=== PATIENT | male | born 1975 | race Caucasian/White ===

== ENCOUNTER 2017-06-25 13:54 | Inpatient (IN) | payer MEDICAID ==
[~2017-06-25] VITALS: Ht 180.3 cm; Wt 78.0 kg
[~2017-06-25 13:54] MED LIST: BENZ1TAB70 PO; DIVA500T52 PO; HALO10TA15 PO; OLAN10TA6 PO; OLAN20TA5 PO; PROP40TA7 PO; TRAZ-147 PO
[2017-06-25 16:36] VITALS: BP 116/79
[2017-06-25 17:43] VITALS: BP 108/71
[2017-06-25] MEDS: ZOLPIDEM TARTRATE 10 MG TABLET PO PRN (20:37)
[2017-06-26 01:10] VITALS: BP 117/75
[2017-06-26] MEDS: LORazepam 2 MG TABLET PO PRN ×4 (01:15→20:45)
[2017-06-26] MEDS: HALOPERIDOL 5 MG TABLET PO PRN ×3 (01:15→16:43)
[2017-06-26 08:00] VITALS: BP 112/65
[2017-06-26] MEDS ORDERED: MAG HYDROX/AL HYDROX/SIMETH ES 30 ML SUSPENSION UDCUP PO PRN (11:30)
[2017-06-26] MEDS ORDERED: CloNIDine HCL 0.1 MG TABLET PO PRN (11:30)
[2017-06-26] MEDS ORDERED: PETROLATUM,WHITE 71 GM JELLY TP PRN (11:30)
[2017-06-26] MEDS ORDERED: BACITRACIN 28.4 GM OINTMENT TP PRN (11:30)
[2017-06-26] MEDS ORDERED: LOPERAMIDE HCL 2 MG CAPSULE PO PRN (11:30)
[2017-06-26] MEDS ORDERED: ALBUTEROL SULFATE HFA 90 MCG/PUFF 8 GM INHALER IH PRN (11:30)
[2017-06-26] MEDS ORDERED: MAGNESIUM HYDROXIDE SUSPENSION 30 ML UDCUP PO PRN (11:30)
[2017-06-26] MEDS ORDERED: ACETAMINOPHEN 325 MG TABLET PO PRN (11:30)
[2017-06-26] MEDS ORDERED: BENZOCAINE/MENTHOL LOZENGE MM PRN (11:30)
[2017-06-26] MEDS ORDERED: ONDANSETRON HCL 4 MG TABLET PO PRN (11:30)
[2017-06-26] MEDS ORDERED: IBUPROFEN 600 MG TABLET PO PRN (11:30)
[2017-06-26] MEDS: DOCUSATE SODIUM 100 MG CAPSULE PO SCH (11:50)
[2017-06-26 16:00] VITALS: BP 110/72
[2017-06-26] MEDS: RisperiDONE 1 MG TABLET PO SCH (20:44)
[2017-06-26] MEDS: ZOLPIDEM TARTRATE 10 MG TABLET PO PRN (20:44)
[2017-06-27 05:15] VITALS: BP 112/63
[2017-06-27 07:38] LABS: BASOPHILS # (AUTO) 0.02 K/uL (0.00-0.20); BASOPHILS % (AUTO) 0.3 % (0.0-2.0); EOSINOPHILS % (AUTO) 2.83 % (1.0-6.0); HEMATOCRIT 39.8 % (41-53); HEMOGLOBIN 13.1 g/dL (13.5-17.5); MEAN CORPUSCULAR HEMOGLOBIN 30.1 pg (26.0-34.0); MEAN CORPUSCULAR HGB CONC 32.9 G/dL (31.0-37.0); MEAN CORPUSCULAR VOLUME 92 fL (80-100); MONOCYTES # (AUTO) 0.5 K/uL (0.1-1.0); MONOCYTES % (AUTO) 7.5 % (2.0-9.0); NEUTROPHILS # (AUTO) 4.3 K/uL (1.8-7.7); NEUTROPHILS % (AUTO) 61.3 % (40.0-70.0); PLATELET COUNT (AUTO) 173 K/uL (150-450); RED BLOOD CELL COUNT(AUTO) 4.35 MIL/uL (4.50-5.90); RED CELL DISTRIBUTION WIDTH 13.6 % (11.5-14.5)
[2017-06-27 08:15] VITALS: BP 110/76
[2017-06-27] MEDS: HALOPERIDOL 5 MG TABLET PO PRN ×3 (08:39→16:44)
[2017-06-27] MEDS: LORazepam 2 MG TABLET PO PRN ×3 (08:39→16:44)
[2017-06-27] MEDS: OMEPRAZOLE 20 MG CAPSULE PO SCH (08:39)
[2017-06-27] MEDS: DOCUSATE SODIUM 100 MG CAPSULE PO SCH (08:39)
[2017-06-27 08:46] LABS: ALANINE AMINOTRANSFERASE 23 U/L (12-78); ALBUMIN 3.4 g/dL (3.4-5.0); ANION GAP 7 mmol/L (8-16); ASPARTATE AMINOTRANSFERASE 19 U/L (15-37); BILIRUBIN,TOTAL 0.3 mg/dL (0.1-1.0); CALCIUM, TOTAL 8.7 mg/dL (8.8-10.5); CARBON DIOXIDE 28 mmol/L (22-29); CHLORIDE 106 mmol/L (98-107); CREATININE 0.71 mg/dL (0.60-1.30); GLOMERULAR FILTR. RATE CALC > 60 mL/min (>60); POTASSIUM 4.1 mmol/L (3.5-5.1); SODIUM SERUM 141 mmol/L (136-145); TOTAL PROTEIN, SERUM 6.8 g/dL (6.4-8.2); UREA NITROGEN, BLOOD 8 mg/dL (7-18)
[2017-06-27 16:00] VITALS: BP 115/74
[2017-06-27] MEDS: RisperiDONE 1 MG TABLET PO SCH (20:47)
[2017-06-28 06:21] VITALS: BP 122/78
[2017-06-28 08:41] VITALS: BP 108/67
[2017-06-28] MEDS: DOCUSATE SODIUM 100 MG CAPSULE PO SCH (08:46)
[2017-06-28] MEDS: OMEPRAZOLE 20 MG CAPSULE PO SCH (08:46)
[2017-06-28 16:00] VITALS: BP 121/73
[2017-06-28] MEDS ORDERED: PROMETHAZINE HCL 25 MG/ML VIAL IM ONE (18:30)
[2017-06-28] MEDS: RisperiDONE 1 MG TABLET PO SCH (20:51)
[2017-06-28] MEDS: ZOLPIDEM TARTRATE 10 MG TABLET PO PRN (20:51)
[2017-06-28] MEDS: LORazepam 2 MG TABLET PO PRN (20:51)
[2017-06-28] MEDS: HALOPERIDOL 5 MG TABLET PO PRN (20:51)
[2017-06-29] MEDS: HALOPERIDOL 5 MG TABLET PO PRN ×2 (01:42→16:34)
[2017-06-29] MEDS: LORazepam 2 MG TABLET PO PRN ×4 (01:42→20:38)
[2017-06-29 01:52] VITALS: BP 140/90
[2017-06-29 08:03] VITALS: BP 110/70
[2017-06-29] MEDS: OMEPRAZOLE 20 MG CAPSULE PO SCH (08:46)
[2017-06-29] MEDS: DOCUSATE SODIUM 100 MG CAPSULE PO SCH (08:46)
[2017-06-29 09:02] LABS: APPEARANCE,URINE TURBID (CLEAR); GLUCOSE, URINE (UA) NEGATIVE (NEGATIVE); KETONES,URINE NEGATIVE (NEGATIVE); LEUKOCYTE ESTERASE ,URINE NEGATIVE (NEGATIVE); OCCULT BLOOD,URINE NEGATIVE (NEGATIVE); PH,URINE 5.5 (5.0-8.0); PROTEIN,URINE NEGATIVE (NEGATIVE)
[2017-06-29 09:39] LABS: ADD UA MICROSCOPIC YES
[2017-06-29 09:40] LABS: AMORPHOUS SEDIMENT,UR Many /LPF (None Seen); RBC,URINE None Seen /HPF (0-2); WBC,URINE None Seen /HPF (0-5)
[2017-06-29 16:00] VITALS: BP 117/72
[2017-06-29] MEDS: ZOLPIDEM TARTRATE 10 MG TABLET PO PRN (20:38)
[2017-06-29] MEDS: RisperiDONE 1 MG TABLET PO SCH (20:38)
[2017-06-30 05:58] VITALS: BP 113/76
[2017-06-30 08:30] VITALS: BP 123/78
[2017-06-30] MEDS ORDERED: MULTIVITAMINS WITH IRON TABLET PO SCH (09:00)
[2017-06-30] MEDS: OMEPRAZOLE 20 MG CAPSULE PO SCH (09:42)
[2017-06-30] MEDS: DOCUSATE SODIUM 100 MG CAPSULE PO SCH (09:42)
[2017-06-30] MEDS ORDERED: OMEP20 PO (11:31)
[2017-06-30] MEDS ORDERED: DSS100 PO (11:31)
[2017-06-30] MEDS ORDERED: RISP1 PO (11:31)
== END 2017-06-30 14:05 | disposition home or self-care (01) | DRG 750 ==
LOC: B3A 16:33
PROVIDERS: ADMIT Psychiatry & Neurology Child & Adolescent Psychiatry; ATTEND Psychiatry & Neurology Child & Adolescent Psychiatry
DX: F20.0 Paranoid schizophrenia (principal); F14.10 Cocaine abuse, uncomplicated; F12.10 Cannabis abuse, uncomplicated; F17.200 Nicotine dependence, unspecified, uncomplicated; G47.00 Insomnia, unspecified; F41.9 Anxiety disorder, unspecified; K59.00 Constipation, unspecified; D64.9 Anemia, unspecified; Z81.8 Family history of other mental and behavioral disorders; Z91.83 Wandering in diseases classified elsewhere; Z79.899 Other long term (current) drug therapy
CPT/HCPCS: 80307; 87081; J2550; Q0162

== ENCOUNTER 2017-07-01 07:32 | Inpatient (IN) | payer MEDICAID ==
[~2017-07-01] VITALS: Ht 177.8 cm; Wt 80.5 kg
[~2017-07-01 07:32] MED LIST changes: -BENZ1TAB70 PO; -DIVA500T52 PO; +DSS100 PO; -HALO10TA15 PO; -OLAN10TA6 PO; -OLAN20TA5 PO; +OMEP20 PO; -PROP40TA7 PO; +RISP1 PO; -TRAZ-147 PO
[2017-07-01 08:21] LABS: BASOPHILS % (AUTO) 0.2 % (0.0-2.0); EOSINOPHILS % (AUTO) 0.5 % (1.0-6.0); HEMOGLOBIN 14.2 g/dL (13.5-17.5); LYMPHOCYTES # (AUTO) 1.4 K/uL (1.0-4.8); LYMPHOCYTES % (AUTO) 14.4 % (22.0-44.0); MEAN CORPUSCULAR HEMOGLOBIN 30.7 pg (26.0-34.0); MEAN CORPUSCULAR HGB CONC 34.6 G/dL (31.0-37.0); MEAN CORPUSCULAR VOLUME 89 fL (80-100); MONOCYTES # (AUTO) 0.7 K/uL (0.1-1.0); MONOCYTES % (AUTO) 7.1 % (2.0-9.0); NEUTROPHILS # (AUTO) 7.5 K/uL (1.8-7.7); NEUTROPHILS % (AUTO) 77.8 % (40.0-70.0); PLATELET COUNT (AUTO) 222 K/uL (150-450); RED BLOOD CELL COUNT(AUTO) 4.61 MIL/uL (4.50-5.90)
[2017-07-01 08:31] LABS: AMPHET/METH SCREEN,URINE NEGATIVE (NEGATIVE); BARBITURATE SCREEN, URINE NEGATIVE (NEGATIVE); BENZODIAZEPINES SCREEN,URINE NEGATIVE (NEGATIVE); CANNABINOID SCREEN,URINE NEGATIVE (NEGATIVE); COCAINE SCREEN,URINE NEGATIVE (NEGATIVE); METHADONE SCREEN, URINE NEGATIVE (NEGATIVE); OPIATE SCREEN,URINE NEGATIVE (NEGATIVE)
[2017-07-01 08:32] LABS: ANION GAP 7 mmol/L (8-16); CALCIUM, TOTAL 9.1 mg/dL (8.8-10.5); CARBON DIOXIDE 29 mmol/L (22-29); CHLORIDE 102 mmol/L (98-107); CREATININE 0.69 mg/dL (0.60-1.30); GLOMERULAR FILTR. RATE CALC > 60 mL/min (>60); GLUCOSE,RANDOM 121 mg/dL (70-110); POTASSIUM 3.8 mmol/L (3.5-5.1); SODIUM SERUM 138 mmol/L (136-145); UREA NITROGEN, BLOOD 16 mg/dL (7-18)
[2017-07-01 08:33] LABS: PHENCYCLIDINE SCREEN,URINE NEGATIVE (NEGATIVE)
[2017-07-01 08:38] LABS: ALANINE AMINOTRANSFERASE 29 U/L (12-78); ALBUMIN 3.9 g/dL (3.4-5.0); ALKALINE PHOSPHATASE 83 U/L (46-116); ASPARTATE AMINOTRANSFERASE 38 U/L (15-37); BILIRUBIN,TOTAL 0.2 mg/dL (0.1-1.0); TOTAL PROTEIN, SERUM 7.9 g/dL (6.4-8.2)
[2017-07-01] MEDS: LORazepam 2 MG TABLET PO PRN ×2 (09:02→17:13)
[2017-07-01] MEDS: HALOPERIDOL 5 MG TABLET PO PRN ×2 (09:02→17:13)
[2017-07-01] MEDS ORDERED: DiphenhydrAMINE HCL 50 MG/ML VIAL ONE (10:25)
[2017-07-01] MEDS ORDERED: LORazepam 2 MG/ML VIAL ONE (10:25)
[2017-07-01] MEDS ORDERED: HALOPERIDOL LACTATE 5 MG/ML VIAL ONE (10:26)
[2017-07-01] MEDS ORDERED: DiphenhydrAMINE HCL 50 MG/ML VIAL IM ONE (10:30)
[2017-07-01] MEDS ORDERED: LORazepam 2 MG/ML VIAL IM ONE (10:30)
[2017-07-01] MEDS ORDERED: HALOPERIDOL LACTATE 5 MG/ML VIAL IM ONE (10:30)
[2017-07-01 17:20] VITALS: BP 113/85
[2017-07-01] MEDS ORDERED: INFLUENZA VIRUS VACCINE QVS 2017-18 (3YR+)/PF 60 MCG/0.5 ML SYRINGE IM ONE (17:45)
[2017-07-02] MEDS: LORazepam 2 MG TABLET PO PRN ×2 (06:50→15:56)
[2017-07-02] MEDS: HALOPERIDOL 5 MG TABLET PO PRN ×2 (06:50→15:56)
[2017-07-02] MEDS ORDERED: LORazepam 2 MG/ML VIAL IM ONE (07:00)
[2017-07-02] MEDS ORDERED: DiphenhydrAMINE HCL 50 MG/ML VIAL IM ONE (07:00)
[2017-07-02] MEDS ORDERED: DiphenhydrAMINE HCL 50 MG/ML VIAL ONE (07:02)
[2017-07-02] MEDS ORDERED: LORazepam 2 MG/ML VIAL ONE (07:02)
[2017-07-02 07:05] VITALS: BP 109/66
[2017-07-02] MEDS: OMEPRAZOLE 20 MG CAPSULE PO SCH (08:00)
[2017-07-02] MEDS: DOCUSATE SODIUM 100 MG CAPSULE PO SCH (08:00)
[2017-07-02 08:05] VITALS: BP 109/66
[2017-07-02 16:00] VITALS: BP 119/77
[2017-07-02] MEDS: RisperiDONE 1 MG TABLET PO SCH (20:17)
[2017-07-02] MEDS ORDERED: RisperiDONE 1 MG TABLET PO SCH (21:00)
[2017-07-03 06:43] VITALS: BP 102/63
[2017-07-03 08:18] VITALS: BP 104/65
[2017-07-03] MEDS: OMEPRAZOLE 20 MG CAPSULE PO SCH (08:35)
[2017-07-03] MEDS: RisperiDONE 1 MG TABLET PO SCH ×2 (08:35→20:27)
[2017-07-03] MEDS: DOCUSATE SODIUM 100 MG CAPSULE PO SCH (08:35)
[2017-07-03] MEDS: HALOPERIDOL 5 MG TABLET PO PRN ×3 (08:35→17:12)
[2017-07-03] MEDS: LORazepam 2 MG TABLET PO PRN ×3 (08:35→17:12)
[2017-07-03 16:00] VITALS: BP 111/77
[2017-07-04 02:52] VITALS: BP 118/64
[2017-07-04] MEDS: RisperiDONE 1 MG TABLET PO SCH ×2 (08:12→20:14)
[2017-07-04] MEDS: LORazepam 2 MG TABLET PO PRN ×2 (08:12→15:56)
[2017-07-04] MEDS: OMEPRAZOLE 20 MG CAPSULE PO SCH (08:12)
[2017-07-04] MEDS: HALOPERIDOL 5 MG TABLET PO PRN ×2 (08:12→15:56)
[2017-07-04] MEDS: DOCUSATE SODIUM 100 MG CAPSULE PO SCH (08:12)
[2017-07-04 08:33] VITALS: BP 114/69
[2017-07-04 09:30] VITALS: BP 104/63
[2017-07-04] MEDS ORDERED: HALOPERIDOL LACTATE 5 MG/ML VIAL IM ONE (09:30)
[2017-07-04] MEDS ORDERED: LORazepam 2 MG/ML VIAL IM ONE (09:30)
[2017-07-04] MEDS ORDERED: DiphenhydrAMINE HCL 50 MG/ML VIAL IM ONE (09:30)
[2017-07-04 10:00] VITALS: BP 102/64
[2017-07-04 16:09] VITALS: BP 111/65
[2017-07-04] MEDS: DIVALPROEX SODIUM 500 MG DR TABLET PO SCH (18:52)
[2017-07-04] MEDS: LITHIUM CARBONATE 300 MG CAPSULE PO SCH (18:52)
[2017-07-04] MEDS: ZOLPIDEM TARTRATE 10 MG TABLET PO PRN (20:14)
[2017-07-05 00:36] VITALS: BP 116/81
[2017-07-05] MEDS ORDERED: LORazepam 2 MG/ML VIAL IM ONE (08:15)
[2017-07-05] MEDS ORDERED: DiphenhydrAMINE HCL 50 MG/ML VIAL IM ONE (08:15)
[2017-07-05] MEDS ORDERED: HALOPERIDOL LACTATE 5 MG/ML VIAL IM ONE (08:15)
[2017-07-05] MEDS ORDERED: LITHIUM CARBONATE 300 MG CAPSULE PO SCH (09:00)
[2017-07-05] MEDS ORDERED: DIVALPROEX SODIUM 500 MG DR TABLET PO SCH (09:00)
[2017-07-05] MEDS: OMEPRAZOLE 20 MG CAPSULE PO SCH (10:13)
[2017-07-05] MEDS: DIVALPROEX SODIUM 500 MG DR TABLET PO SCH ×2 (10:13→16:25)
[2017-07-05] MEDS: LITHIUM CARBONATE 300 MG CAPSULE PO SCH ×2 (10:13→16:25)
[2017-07-05] MEDS: DOCUSATE SODIUM 100 MG CAPSULE PO SCH (10:13)
[2017-07-05] MEDS: RisperiDONE 1 MG TABLET PO SCH ×2 (10:13→20:06)
[2017-07-05 10:39] VITALS: BP 103/62
[2017-07-05] MEDS: HALOPERIDOL 5 MG TABLET PO PRN ×2 (12:54→20:06)
[2017-07-05] MEDS: LORazepam 2 MG TABLET PO PRN ×2 (12:54→16:25)
[2017-07-05] MEDS ORDERED: LITH300C3 PO (13:10)
[2017-07-05] MEDS ORDERED: DIVA500T35 PO (13:10)
[2017-07-05 16:43] VITALS: BP 122/74
[2017-07-05] MEDS: ZOLPIDEM TARTRATE 10 MG TABLET PO PRN (20:06)
[2017-07-06 06:15] VITALS: BP 101/83
[2017-07-06 08:00] VITALS: BP 110/72
[2017-07-06] MEDS: OMEPRAZOLE 20 MG CAPSULE PO SCH (08:19)
[2017-07-06] MEDS: LITHIUM CARBONATE 300 MG CAPSULE PO SCH ×2 (08:19→16:35)
[2017-07-06] MEDS: DOCUSATE SODIUM 100 MG CAPSULE PO SCH (08:20)
[2017-07-06] MEDS: RisperiDONE 1 MG TABLET PO SCH ×2 (08:20→20:21)
[2017-07-06] MEDS: DIVALPROEX SODIUM 500 MG DR TABLET PO SCH ×2 (08:20→16:35)
[2017-07-06] MEDS: LORazepam 2 MG TABLET PO PRN ×2 (12:00→16:35)
[2017-07-06] MEDS: HALOPERIDOL 5 MG TABLET PO PRN ×2 (12:00→16:35)
[2017-07-06 16:34] VITALS: BP 131/76
[2017-07-06] MEDS: ZOLPIDEM TARTRATE 10 MG TABLET PO PRN (20:20)
[2017-07-07 05:50] VITALS: BP 127/80
[2017-07-07] MEDS: RisperiDONE 1 MG TABLET PO SCH (07:55)
[2017-07-07] MEDS: LITHIUM CARBONATE 300 MG CAPSULE PO SCH ×2 (07:55→16:47)
[2017-07-07] MEDS: DOCUSATE SODIUM 100 MG CAPSULE PO SCH (07:55)
[2017-07-07] MEDS: OMEPRAZOLE 20 MG CAPSULE PO SCH (07:55)
[2017-07-07] MEDS: DIVALPROEX SODIUM 500 MG DR TABLET PO SCH ×2 (07:55→16:47)
[2017-07-07 08:38] VITALS: BP 107/86
[2017-07-07] MEDS ORDERED: LORazepam 2 MG/ML VIAL ONE (16:02)
[2017-07-07] MEDS ORDERED: DiphenhydrAMINE HCL 50 MG/ML VIAL ONE (16:02)
[2017-07-07] MEDS ORDERED: HALOPERIDOL LACTATE 5 MG/ML VIAL IM ONE (16:15)
[2017-07-07] MEDS ORDERED: DiphenhydrAMINE HCL 50 MG/ML VIAL IM ONE (16:15)
[2017-07-07] MEDS ORDERED: LORazepam 2 MG/ML VIAL IM ONE (16:15)
[2017-07-07] MEDS: RisperiDONE 2 MG TABLET PO SCH (20:37)
[2017-07-08 08:04] VITALS: BP 111/64
[2017-07-08] MEDS: LORazepam 2 MG TABLET PO PRN ×3 (08:30→21:04)
[2017-07-08] MEDS: OMEPRAZOLE 20 MG CAPSULE PO SCH (08:30)
[2017-07-08] MEDS: DIVALPROEX SODIUM 500 MG DR TABLET PO SCH ×2 (08:30→17:00)
[2017-07-08] MEDS: DOCUSATE SODIUM 100 MG CAPSULE PO SCH (08:30)
[2017-07-08] MEDS: LITHIUM CARBONATE 300 MG CAPSULE PO SCH ×2 (08:30→17:00)
[2017-07-08] MEDS: RisperiDONE 2 MG TABLET PO SCH (08:30)
[2017-07-08] MEDS: HALOPERIDOL 5 MG TABLET PO PRN ×2 (08:30→17:00)
[2017-07-08] MEDS ORDERED: LORazepam 2 MG/ML VIAL ONE (11:20)
[2017-07-08] MEDS ORDERED: DiphenhydrAMINE HCL 50 MG/ML VIAL ONE (11:21)
[2017-07-08] MEDS ORDERED: HALOPERIDOL LACTATE 5 MG/ML VIAL ONE (11:21)
[2017-07-08] MEDS ORDERED: LORazepam 2 MG/ML VIAL IM ONE (11:30)
[2017-07-08] MEDS ORDERED: HALOPERIDOL LACTATE 5 MG/ML VIAL IM ONE (11:30)
[2017-07-08] MEDS ORDERED: DiphenhydrAMINE HCL 50 MG/ML VIAL IM ONE (11:30)
[2017-07-08 16:04] VITALS: BP 122/73
[2017-07-08] MEDS: ZOLPIDEM TARTRATE 10 MG TABLET PO PRN (21:04)
[2017-07-08] MEDS: RisperiDONE 3 MG TABLET PO SCH (21:04)
[2017-07-09 08:33] VITALS: BP 106/69
[2017-07-09] MEDS: LORazepam 2 MG TABLET PO PRN ×2 (08:47→14:33)
[2017-07-09] MEDS: RisperiDONE 3 MG TABLET PO SCH ×2 (08:47→20:29)
[2017-07-09] MEDS: HALOPERIDOL 5 MG TABLET PO PRN ×2 (08:47→14:33)
[2017-07-09] MEDS: OMEPRAZOLE 20 MG CAPSULE PO SCH (08:47)
[2017-07-09] MEDS: LITHIUM CARBONATE 300 MG CAPSULE PO SCH ×2 (08:47→16:19)
[2017-07-09] MEDS ORDERED: MAGNESIUM HYDROXIDE SUSPENSION 30 ML UDCUP PO PRN (09:00)
[2017-07-09] MEDS ORDERED: MAG HYDROX/AL HYDROX/SIMETH ES 30 ML SUSPENSION UDCUP PO PRN (09:00)
[2017-07-09] MEDS ORDERED: BENZOCAINE/MENTHOL LOZENGE MM PRN (09:00)
[2017-07-09] MEDS ORDERED: BACITRACIN 28.4 GM OINTMENT TP PRN (09:00)
[2017-07-09] MEDS ORDERED: LOPERAMIDE HCL 2 MG CAPSULE PO PRN (09:00)
[2017-07-09] MEDS ORDERED: DOCUSATE SODIUM 100 MG CAPSULE PO SCH (09:00)
[2017-07-09] MEDS ORDERED: CloNIDine HCL 0.1 MG TABLET PO PRN (09:00)
[2017-07-09] MEDS ORDERED: ACETAMINOPHEN 325 MG TABLET PO PRN (09:00)
[2017-07-09] MEDS ORDERED: PETROLATUM,WHITE 71 GM JELLY TP PRN (09:00)
[2017-07-09] MEDS ORDERED: ONDANSETRON HCL 4 MG TABLET PO PRN (09:00)
[2017-07-09] MEDS ORDERED: ALBUTEROL SULFATE HFA 90 MCG/PUFF 8 GM INHALER IH PRN (09:00)
[2017-07-09] MEDS ORDERED: OMEPRAZOLE 20 MG CAPSULE PO SCH (09:00)
[2017-07-09] MEDS: DOCUSATE SODIUM 100 MG CAPSULE PO SCH (09:34)
[2017-07-09] MEDS: DIVALPROEX SODIUM 500 MG DR TABLET PO SCH ×2 (09:34→16:19)
[2017-07-09] MEDS: IBUPROFEN 600 MG TABLET PO PRN (09:35)
[2017-07-09 11:14] LABS: LITHIUM 0.33 mmol/L (0.60-1.20)
[2017-07-09 16:11] VITALS: BP 128/76
[2017-07-09] MEDS ORDERED: DiphenhydrAMINE HCL 50 MG/ML VIAL ONE (17:42)
[2017-07-09] MEDS ORDERED: LORazepam 2 MG/ML VIAL ONE (17:42)
[2017-07-09] MEDS ORDERED: HALOPERIDOL LACTATE 5 MG/ML VIAL ONE (17:43)
[2017-07-09] MEDS ORDERED: LORazepam 2 MG/ML VIAL IM ONE (17:45)
[2017-07-09] MEDS ORDERED: HALOPERIDOL LACTATE 5 MG/ML VIAL IM ONE (17:45)
[2017-07-09] MEDS ORDERED: DiphenhydrAMINE HCL 50 MG/ML VIAL IM ONE (17:45)
[2017-07-09] MEDS: BENZOCAINE 20% 11.9 GM GEL TP SCH (21:15)
[2017-07-10] MEDS: BENZOCAINE 20% 11.9 GM GEL TP SCH ×4 (03:15→20:37)
[2017-07-10] MEDS ORDERED: DiphenhydrAMINE HCL 50 MG/ML VIAL IM ONE (07:55)
[2017-07-10] MEDS ORDERED: LORazepam 2 MG/ML VIAL IM ONE (07:55)
[2017-07-10] MEDS ORDERED: HALOPERIDOL LACTATE 5 MG/ML VIAL IM ONE (07:55)
[2017-07-10 08:24] VITALS: BP 93/54
[2017-07-10] MEDS: DIVALPROEX SODIUM 500 MG DR TABLET PO SCH ×2 (08:35→17:00)
[2017-07-10] MEDS: OMEPRAZOLE 20 MG CAPSULE PO SCH (08:36)
[2017-07-10] MEDS: LITHIUM CARBONATE 300 MG CAPSULE PO SCH ×2 (08:36→17:00)
[2017-07-10] MEDS: RisperiDONE 3 MG TABLET PO SCH ×2 (08:36→20:36)
[2017-07-10] MEDS: DOCUSATE SODIUM 100 MG CAPSULE PO SCH (08:36)
[2017-07-10] MEDS: MAGNESIUM SULFATE 454 GM BOX PO SCH ×3 (08:36→17:01)
[2017-07-10] MEDS: LORazepam 2 MG TABLET PO PRN ×2 (10:29→19:21)
[2017-07-10] MEDS: HALOPERIDOL 5 MG TABLET PO PRN ×2 (10:29→19:21)
[2017-07-10] MEDS ORDERED: LORazepam 2 MG/ML VIAL ONE (10:59)
[2017-07-10] MEDS ORDERED: DiphenhydrAMINE HCL 50 MG/ML VIAL ONE (10:59)
[2017-07-10] MEDS ORDERED: HALOPERIDOL LACTATE 5 MG/ML VIAL ONE (11:00)
[2017-07-10 16:29] VITALS: BP 146/55
[2017-07-10] MEDS: ZOLPIDEM TARTRATE 10 MG TABLET PO PRN (23:56)
[2017-07-11] MEDS: BENZOCAINE 20% 11.9 GM GEL TP SCH ×4 (03:15→21:15)
[2017-07-11 06:14] VITALS: BP 102/61
[2017-07-11 08:04] VITALS: BP 112/74
[2017-07-11] MEDS ORDERED: DiphenhydrAMINE HCL 50 MG/ML VIAL ONE (08:51)
[2017-07-11] MEDS ORDERED: HALOPERIDOL LACTATE 5 MG/ML VIAL ONE (08:51)
[2017-07-11] MEDS ORDERED: LORazepam 2 MG/ML VIAL ONE (08:51)
[2017-07-11] MEDS ORDERED: DiphenhydrAMINE HCL 50 MG/ML VIAL IM ONE ×2 (09:15→15:30)
[2017-07-11] MEDS ORDERED: HALOPERIDOL LACTATE 5 MG/ML VIAL IM ONE ×2 (09:15→15:30)
[2017-07-11] MEDS ORDERED: LORazepam 2 MG/ML VIAL IM ONE ×2 (09:15→15:30)
[2017-07-11] MEDS: DOCUSATE SODIUM 100 MG CAPSULE PO SCH (09:22)
[2017-07-11] MEDS: DIVALPROEX SODIUM 500 MG DR TABLET PO SCH ×2 (09:22→17:39)
[2017-07-11] MEDS: OMEPRAZOLE 20 MG CAPSULE PO SCH (09:22)
[2017-07-11] MEDS: RisperiDONE 3 MG TABLET PO SCH ×2 (09:22→21:00)
[2017-07-11] MEDS: LITHIUM CARBONATE 300 MG CAPSULE PO SCH ×2 (09:22→17:39)
[2017-07-11] MEDS: MAGNESIUM SULFATE 454 GM BOX PO SCH ×3 (09:23→17:39)
[2017-07-11 16:01] VITALS: BP 140/86
[2017-07-11] MEDS: LORazepam 2 MG TABLET PO PRN (17:39)
[2017-07-11] MEDS: HALOPERIDOL 5 MG TABLET PO PRN (17:39)
[2017-07-11] MEDS: ZOLPIDEM TARTRATE 10 MG TABLET PO PRN (21:00)
[2017-07-12 01:30] VITALS: BP 124/78
[2017-07-12] MEDS: BENZOCAINE 20% 11.9 GM GEL TP SCH ×3 (03:15→16:06)
[2017-07-12] MEDS: RisperiDONE 3 MG TABLET PO SCH ×2 (08:31→20:31)
[2017-07-12] MEDS: LITHIUM CARBONATE 300 MG CAPSULE PO SCH ×2 (08:31→16:06)
[2017-07-12] MEDS: DOCUSATE SODIUM 100 MG CAPSULE PO SCH (08:31)
[2017-07-12] MEDS: OMEPRAZOLE 20 MG CAPSULE PO SCH (08:31)
[2017-07-12] MEDS: DIVALPROEX SODIUM 500 MG DR TABLET PO SCH ×2 (08:31→16:06)
[2017-07-12 08:49] VITALS: BP 107/61
[2017-07-12] MEDS: MAGNESIUM SULFATE 454 GM BOX PO SCH ×3 (09:45→16:07)
[2017-07-12] MEDS: LORazepam 2 MG TABLET PO PRN ×3 (10:22→22:48)
[2017-07-12] MEDS: HALOPERIDOL 5 MG TABLET PO PRN ×2 (10:22→16:06)
[2017-07-12 16:07] VITALS: BP 127/82
[2017-07-12] MEDS ORDERED: BENZOCAINE 20% 11.9 GM GEL TP PRN (21:15)
[2017-07-12] MEDS: ZOLPIDEM TARTRATE 10 MG TABLET PO PRN (22:48)
[2017-07-13 07:06] VITALS: BP 122/75
[2017-07-13 08:12] VITALS: BP 127/74
[2017-07-13] MEDS: DIVALPROEX SODIUM 500 MG DR TABLET PO SCH ×3 (08:18→16:13)
[2017-07-13] MEDS: MAGNESIUM SULFATE 454 GM BOX PO SCH ×3 (08:19→16:13)
[2017-07-13] MEDS: RisperiDONE 3 MG TABLET PO SCH ×2 (08:19→20:20)
[2017-07-13] MEDS: LITHIUM CARBONATE 300 MG CAPSULE PO SCH ×3 (08:19→16:13)
[2017-07-13] MEDS: OMEPRAZOLE 20 MG CAPSULE PO SCH (08:19)
[2017-07-13] MEDS: DOCUSATE SODIUM 100 MG CAPSULE PO SCH (08:19)
[2017-07-13] MEDS ORDERED: DiphenhydrAMINE HCL 50 MG/ML VIAL ONE (08:31)
[2017-07-13] MEDS ORDERED: LORazepam 2 MG/ML VIAL ONE (08:31)
[2017-07-13] MEDS ORDERED: HALOPERIDOL LACTATE 5 MG/ML VIAL ONE (08:31)
[2017-07-13] MEDS ORDERED: LORazepam 2 MG/ML VIAL IM ONE ×2 (08:45→14:30)
[2017-07-13] MEDS ORDERED: HALOPERIDOL LACTATE 5 MG/ML VIAL IM ONE ×2 (08:45→14:30)
[2017-07-13] MEDS ORDERED: DiphenhydrAMINE HCL 50 MG/ML VIAL IM ONE ×2 (08:45→14:30)
[2017-07-13] MEDS: HALOPERIDOL 5 MG TABLET PO PRN (13:19)
[2017-07-13] MEDS: LORazepam 2 MG TABLET PO PRN ×2 (13:19→20:20)
[2017-07-13 16:02] VITALS: BP 131/72
[2017-07-13] MEDS: ZOLPIDEM TARTRATE 10 MG TABLET PO PRN (20:20)
[2017-07-14 06:46] VITALS: BP 129/76
[2017-07-14 08:00] VITALS: BP 124/65
[2017-07-14] MEDS: RisperiDONE 3 MG TABLET PO SCH ×2 (09:25→20:02)
[2017-07-14] MEDS: DOCUSATE SODIUM 100 MG CAPSULE PO SCH (09:25)
[2017-07-14] MEDS: DIVALPROEX SODIUM 500 MG DR TABLET PO SCH ×3 (09:25→16:08)
[2017-07-14] MEDS: LITHIUM CARBONATE 300 MG CAPSULE PO SCH ×3 (09:25→16:08)
[2017-07-14] MEDS: OMEPRAZOLE 20 MG CAPSULE PO SCH (09:25)
[2017-07-14] MEDS: MAGNESIUM SULFATE 454 GM BOX PO SCH ×3 (09:26→16:08)
[2017-07-14] MEDS: LORazepam 2 MG TABLET PO PRN ×3 (09:26→18:05)
[2017-07-14] MEDS: HALOPERIDOL 5 MG TABLET PO PRN ×2 (10:09→18:05)
[2017-07-14 16:24] VITALS: BP 117/70
[2017-07-14] MEDS: ZOLPIDEM TARTRATE 10 MG TABLET PO PRN (20:02)
[2017-07-15 05:18] VITALS: BP 127/80
[2017-07-15 08:02] VITALS: BP 114/76
[2017-07-15] MEDS: DOCUSATE SODIUM 100 MG CAPSULE PO SCH (09:04)
[2017-07-15] MEDS: DIVALPROEX SODIUM 500 MG DR TABLET PO SCH ×3 (09:04→16:47)
[2017-07-15] MEDS: MAGNESIUM SULFATE 454 GM BOX PO SCH ×3 (09:04→16:47)
[2017-07-15] MEDS: RisperiDONE 3 MG TABLET PO SCH ×2 (09:04→20:39)
[2017-07-15] MEDS: LORazepam 2 MG TABLET PO PRN ×3 (09:04→17:15)
[2017-07-15] MEDS: LITHIUM CARBONATE 300 MG CAPSULE PO SCH ×3 (09:04→16:47)
[2017-07-15] MEDS: OMEPRAZOLE 20 MG CAPSULE PO SCH (09:04)
[2017-07-15] MEDS: HALOPERIDOL 5 MG TABLET PO PRN ×2 (09:37→16:48)
[2017-07-15 14:15] VITALS: BP 117/81
[2017-07-15 16:01] VITALS: BP 118/76
[2017-07-15] MEDS: ZOLPIDEM TARTRATE 10 MG TABLET PO PRN (20:39)
[2017-07-16 06:35] VITALS: BP 121/77
[2017-07-16 08:01] VITALS: BP 118/80
[2017-07-16] MEDS: LITHIUM CARBONATE 300 MG CAPSULE PO SCH ×3 (09:05→16:13)
[2017-07-16] MEDS: OMEPRAZOLE 20 MG CAPSULE PO SCH (09:05)
[2017-07-16] MEDS: DOCUSATE SODIUM 100 MG CAPSULE PO SCH (09:05)
[2017-07-16] MEDS: RisperiDONE 3 MG TABLET PO SCH ×2 (09:05→20:27)
[2017-07-16] MEDS: DIVALPROEX SODIUM 500 MG DR TABLET PO SCH ×3 (09:05→16:13)
[2017-07-16] MEDS: MAGNESIUM SULFATE 454 GM BOX PO SCH ×3 (09:06→16:35)
[2017-07-16] MEDS: LORazepam 2 MG TABLET PO PRN ×2 (09:06→16:13)
[2017-07-16 09:12] LABS: APPEARANCE,URINE CLEAR (CLEAR); BILIRUBIN,URINE NEGATIVE (NEGATIVE); GLUCOSE, URINE (UA) NEGATIVE (NEGATIVE); KETONES,URINE NEGATIVE (NEGATIVE); LEUKOCYTE ESTERASE ,URINE NEGATIVE (NEGATIVE); NITRATE,URINE NEGATIVE (NEGATIVE); OCCULT BLOOD,URINE NEGATIVE (NEGATIVE); PH,URINE 7.5 (5.0-8.0); PROTEIN,URINE NEGATIVE (NEGATIVE); UROBILINOGEN,URINE 0.2 mg/dL (<=1.0)
[2017-07-16] MEDS: HALOPERIDOL 5 MG TABLET PO PRN ×2 (09:55→16:13)
[2017-07-16 16:03] VITALS: BP 128/75
[2017-07-16 16:09] VITALS: BP 128/75
[2017-07-16] MEDS: IBUPROFEN 600 MG TABLET PO PRN (16:13)
[2017-07-17 01:30] VITALS: BP 124/79
[2017-07-17] MEDS: ZOLPIDEM TARTRATE 10 MG TABLET PO PRN (01:36)
[2017-07-17] MEDS: IBUPROFEN 600 MG TABLET PO PRN (01:36)
[2017-07-17 08:12] VITALS: BP 117/75
[2017-07-17] MEDS ORDERED: HALOPERIDOL LACTATE 5 MG/ML VIAL ONE (08:15)
[2017-07-17] MEDS ORDERED: DiphenhydrAMINE HCL 50 MG/ML VIAL IM ONE (08:15)
[2017-07-17] MEDS ORDERED: LORazepam 2 MG/ML VIAL IM ONE (08:15)
[2017-07-17] MEDS ORDERED: HALOPERIDOL LACTATE 5 MG/ML VIAL IM ONE (08:15)
[2017-07-17] MEDS: DIVALPROEX SODIUM 500 MG DR TABLET PO SCH ×3 (08:26→16:01)
[2017-07-17] MEDS: LITHIUM CARBONATE 300 MG CAPSULE PO SCH ×3 (08:27→16:01)
[2017-07-17] MEDS: RisperiDONE 3 MG TABLET PO SCH ×2 (08:27→20:29)
[2017-07-17] MEDS: OMEPRAZOLE 20 MG CAPSULE PO SCH (08:27)
[2017-07-17] MEDS: DOCUSATE SODIUM 100 MG CAPSULE PO SCH (08:27)
[2017-07-17 09:00] VITALS: BP 124/70
[2017-07-17] MEDS: MAGNESIUM SULFATE 454 GM BOX PO SCH ×3 (09:56→16:01)
[2017-07-17 16:05] VITALS: BP 125/70
[2017-07-18] MEDS: ZOLPIDEM TARTRATE 10 MG TABLET PO PRN (00:58)
[2017-07-18 05:23] VITALS: BP 109/82
[2017-07-18 08:25] VITALS: BP 113/79
[2017-07-18] MEDS: DOCUSATE SODIUM 100 MG CAPSULE PO SCH (08:35)
[2017-07-18] MEDS: HALOPERIDOL 5 MG TABLET PO PRN ×3 (08:36→16:59)
[2017-07-18] MEDS: OMEPRAZOLE 20 MG CAPSULE PO SCH (08:36)
[2017-07-18] MEDS: LITHIUM CARBONATE 300 MG CAPSULE PO SCH ×3 (08:36→16:08)
[2017-07-18] MEDS: MAGNESIUM SULFATE 454 GM BOX PO SCH ×3 (08:36→16:07)
[2017-07-18] MEDS: LORazepam 2 MG TABLET PO PRN ×3 (08:36→16:58)
[2017-07-18] MEDS: DIVALPROEX SODIUM 500 MG DR TABLET PO SCH ×3 (08:36→16:08)
[2017-07-18] MEDS: RisperiDONE 3 MG TABLET PO SCH ×2 (08:36→20:44)
[2017-07-18 16:00] VITALS: BP 116/85
[2017-07-19 06:00] VITALS: BP 133/88
[2017-07-19 08:00] VITALS: BP 138/86
[2017-07-19 08:23] LABS: LITHIUM 0.36 mmol/L (0.60-1.20)
[2017-07-19] MEDS ORDERED: LITHIUM CARBONATE 300 MG CAPSULE PO ONE ×2 (08:45→09:30)
[2017-07-19] MEDS ORDERED: DIVALPROEX SODIUM 500 MG DR TABLET PO ONE ×2 (08:45→09:30)
[2017-07-19] MEDS ORDERED: LITHIUM CARBONATE 600 MG CAPSULE PO SCH (09:00)
[2017-07-19] MEDS ORDERED: DIVALPROEX SODIUM 500 MG DR TABLET PO SCH (09:00)
[2017-07-19] MEDS: LORazepam 2 MG TABLET PO PRN ×2 (09:08→16:31)
[2017-07-19] MEDS: RisperiDONE 3 MG TABLET PO SCH ×2 (09:08→20:11)
[2017-07-19] MEDS: DOCUSATE SODIUM 100 MG CAPSULE PO SCH (09:08)
[2017-07-19] MEDS: OMEPRAZOLE 20 MG CAPSULE PO SCH (09:08)
[2017-07-19] MEDS: HALOPERIDOL 5 MG TABLET PO PRN ×2 (09:08→16:31)
[2017-07-19] MEDS: MAGNESIUM SULFATE 454 GM BOX PO SCH ×3 (09:12→16:31)
[2017-07-19] MEDS ORDERED: LORazepam 2 MG/ML VIAL ONE (09:26)
[2017-07-19] MEDS ORDERED: HALOPERIDOL LACTATE 5 MG/ML VIAL ONE (09:26)
[2017-07-19] MEDS ORDERED: DiphenhydrAMINE HCL 50 MG/ML VIAL ONE (09:27)
[2017-07-19] MEDS ORDERED: HALOPERIDOL LACTATE 5 MG/ML VIAL IM ONE (09:30)
[2017-07-19] MEDS ORDERED: DiphenhydrAMINE HCL 50 MG/ML VIAL IM ONE (09:30)
[2017-07-19] MEDS ORDERED: LORazepam 2 MG/ML VIAL IM ONE (09:30)
[2017-07-19 16:02] VITALS: BP 124/72
[2017-07-19] MEDS: LITHIUM CARBONATE 600 MG CAPSULE PO SCH (16:31)
[2017-07-19] MEDS: ZOLPIDEM TARTRATE 10 MG TABLET PO PRN (20:11)
[2017-07-19] MEDS: DIVALPROEX SODIUM 500 MG DR TABLET PO SCH (20:11)
[2017-07-20 05:28] VITALS: BP 122/81
[2017-07-20 08:01] VITALS: BP 122/77
[2017-07-20] MEDS: DIVALPROEX SODIUM 500 MG DR TABLET PO SCH ×2 (09:04→20:21)
[2017-07-20] MEDS: LITHIUM CARBONATE 600 MG CAPSULE PO SCH ×2 (09:04→16:12)
[2017-07-20] MEDS: OMEPRAZOLE 20 MG CAPSULE PO SCH (09:04)
[2017-07-20] MEDS: HALOPERIDOL 5 MG TABLET PO PRN ×2 (09:04→16:12)
[2017-07-20] MEDS: DOCUSATE SODIUM 100 MG CAPSULE PO SCH (09:04)
[2017-07-20] MEDS: RisperiDONE 3 MG TABLET PO SCH ×2 (09:05→20:21)
[2017-07-20] MEDS: MAGNESIUM SULFATE 454 GM BOX PO SCH ×3 (09:05→16:12)
[2017-07-20] MEDS: LORazepam 2 MG TABLET PO PRN ×2 (09:05→16:12)
[2017-07-20 16:22] VITALS: BP 122/76
[2017-07-21 05:07] VITALS: BP 113/62
[2017-07-21] MEDS: LITHIUM CARBONATE 600 MG CAPSULE PO SCH ×2 (08:00→16:15)
[2017-07-21] MEDS: HALOPERIDOL 5 MG TABLET PO PRN ×3 (08:01→16:15)
[2017-07-21] MEDS: RisperiDONE 3 MG TABLET PO SCH ×2 (08:01→20:06)
[2017-07-21] MEDS: DOCUSATE SODIUM 100 MG CAPSULE PO SCH (08:01)
[2017-07-21] MEDS: LORazepam 2 MG TABLET PO PRN ×3 (08:01→16:15)
[2017-07-21] MEDS: DIVALPROEX SODIUM 500 MG DR TABLET PO SCH ×2 (08:01→20:06)
[2017-07-21] MEDS: MAGNESIUM SULFATE 454 GM BOX PO SCH ×3 (08:01→17:29)
[2017-07-21] MEDS: OMEPRAZOLE 20 MG CAPSULE PO SCH (08:01)
[2017-07-21 08:07] VITALS: BP 118/68
[2017-07-21 16:00] VITALS: BP 112/73
[2017-07-22] MEDS: ZOLPIDEM TARTRATE 10 MG TABLET PO PRN (00:47)
[2017-07-22 04:33] VITALS: BP 111/78
[2017-07-22 08:52] VITALS: BP_SYST 108; BP_DIAS 62; BP_DIAS 78
[2017-07-22] MEDS: LITHIUM CARBONATE 600 MG CAPSULE PO SCH ×2 (09:07→16:34)
[2017-07-22] MEDS: DIVALPROEX SODIUM 500 MG DR TABLET PO SCH ×2 (09:07→20:40)
[2017-07-22] MEDS: DOCUSATE SODIUM 100 MG CAPSULE PO SCH (09:07)
[2017-07-22] MEDS: HALOPERIDOL 5 MG TABLET PO PRN ×2 (09:08→16:34)
[2017-07-22] MEDS: OMEPRAZOLE 20 MG CAPSULE PO SCH (09:08)
[2017-07-22] MEDS: LORazepam 2 MG TABLET PO PRN ×2 (09:08→16:35)
[2017-07-22] MEDS: MAGNESIUM SULFATE 454 GM BOX PO SCH ×3 (09:08→16:35)
[2017-07-22] MEDS: RisperiDONE 3 MG TABLET PO SCH ×2 (09:08→20:40)
[2017-07-22 16:00] VITALS: BP 123/79
[2017-07-23 01:00] VITALS: BP 108/75
[2017-07-23] MEDS: ZOLPIDEM TARTRATE 10 MG TABLET PO PRN ×2 (01:04→22:04)
[2017-07-23] MEDS: LITHIUM CARBONATE 600 MG CAPSULE PO SCH ×2 (08:07→16:11)
[2017-07-23] MEDS: DOCUSATE SODIUM 100 MG CAPSULE PO SCH (08:07)
[2017-07-23] MEDS: OMEPRAZOLE 20 MG CAPSULE PO SCH (08:07)
[2017-07-23] MEDS: LORazepam 2 MG TABLET PO PRN ×2 (08:07→16:12)
[2017-07-23] MEDS: RisperiDONE 3 MG TABLET PO SCH ×2 (08:07→20:04)
[2017-07-23] MEDS: DIVALPROEX SODIUM 500 MG DR TABLET PO SCH ×2 (08:07→20:04)
[2017-07-23] MEDS: HALOPERIDOL 5 MG TABLET PO PRN ×2 (08:07→16:12)
[2017-07-23] MEDS: MAGNESIUM SULFATE 454 GM BOX PO SCH ×3 (08:08→16:12)
[2017-07-23 08:15] VITALS: BP 105/60
[2017-07-23 16:24] VITALS: BP 137/88
[2017-07-24 06:21] VITALS: BP 111/75
[2017-07-24 08:01] VITALS: BP 136/87
[2017-07-24] MEDS: DOCUSATE SODIUM 100 MG CAPSULE PO SCH (09:02)
[2017-07-24] MEDS: DIVALPROEX SODIUM 500 MG DR TABLET PO SCH ×2 (09:02→20:20)
[2017-07-24] MEDS: OMEPRAZOLE 20 MG CAPSULE PO SCH (09:02)
[2017-07-24] MEDS: HALOPERIDOL 5 MG TABLET PO PRN ×3 (09:03→23:37)
[2017-07-24] MEDS: LORazepam 2 MG TABLET PO PRN ×3 (09:03→23:36)
[2017-07-24] MEDS: RisperiDONE 3 MG TABLET PO SCH ×2 (09:03→20:20)
[2017-07-24] MEDS: MAGNESIUM SULFATE 454 GM BOX PO SCH ×3 (09:03→16:32)
[2017-07-24] MEDS: LITHIUM CARBONATE 600 MG CAPSULE PO SCH ×2 (09:03→16:39)
[2017-07-24 16:00] VITALS: BP 120/73
[2017-07-24] MEDS: ZOLPIDEM TARTRATE 10 MG TABLET PO PRN (21:06)
[2017-07-25 00:03] VITALS: BP 106/73
[2017-07-25 08:09] VITALS: BP 114/71
[2017-07-25] MEDS: OMEPRAZOLE 20 MG CAPSULE PO SCH (08:41)
[2017-07-25] MEDS: LORazepam 2 MG TABLET PO PRN ×3 (08:41→17:26)
[2017-07-25] MEDS: MAGNESIUM SULFATE 454 GM BOX PO SCH ×3 (08:41→16:21)
[2017-07-25] MEDS: DOCUSATE SODIUM 100 MG CAPSULE PO SCH (08:42)
[2017-07-25] MEDS: DIVALPROEX SODIUM 500 MG DR TABLET PO SCH ×2 (08:42→20:48)
[2017-07-25] MEDS: LITHIUM CARBONATE 600 MG CAPSULE PO SCH ×2 (08:42→16:21)
[2017-07-25] MEDS: RisperiDONE 3 MG TABLET PO SCH ×2 (08:42→20:48)
[2017-07-25] MEDS: HALOPERIDOL 5 MG TABLET PO PRN ×3 (09:08→17:26)
[2017-07-25 16:00] VITALS: BP 121/65
[2017-07-26 07:09] VITALS: BP 118/70
[2017-07-26 08:05] VITALS: BP 110/76
[2017-07-26] MEDS: OMEPRAZOLE 20 MG CAPSULE PO SCH (08:25)
[2017-07-26] MEDS: DIVALPROEX SODIUM 500 MG DR TABLET PO SCH ×2 (08:25→20:08)
[2017-07-26] MEDS: MAGNESIUM SULFATE 454 GM BOX PO SCH ×3 (08:25→16:14)
[2017-07-26] MEDS: LORazepam 2 MG TABLET PO PRN ×3 (08:25→19:09)
[2017-07-26] MEDS: RisperiDONE 3 MG TABLET PO SCH ×2 (08:25→20:08)
[2017-07-26] MEDS: LITHIUM CARBONATE 600 MG CAPSULE PO SCH ×2 (08:25→16:14)
[2017-07-26] MEDS: DOCUSATE SODIUM 100 MG CAPSULE PO SCH (08:25)
[2017-07-26] MEDS: HALOPERIDOL 5 MG TABLET PO PRN (09:38)
[2017-07-26 16:00] VITALS: BP 116/74
[2017-07-27 05:44] VITALS: BP 120/72
[2017-07-27 08:01] VITALS: BP 124/76
[2017-07-27] MEDS: OMEPRAZOLE 20 MG CAPSULE PO SCH (08:19)
[2017-07-27] MEDS: MAGNESIUM SULFATE 454 GM BOX PO SCH ×3 (08:19→16:40)
[2017-07-27] MEDS: RisperiDONE 3 MG TABLET PO SCH ×2 (08:19→20:45)
[2017-07-27] MEDS: DOCUSATE SODIUM 100 MG CAPSULE PO SCH (08:19)
[2017-07-27] MEDS: DIVALPROEX SODIUM 500 MG DR TABLET PO SCH ×2 (08:19→20:45)
[2017-07-27] MEDS: LITHIUM CARBONATE 600 MG CAPSULE PO SCH ×2 (08:19→16:39)
[2017-07-27 16:00] VITALS: BP 128/86
[2017-07-27] MEDS: LORazepam 2 MG TABLET PO PRN ×2 (16:39→21:02)
[2017-07-27] MEDS: HALOPERIDOL 5 MG TABLET PO PRN (16:39)
[2017-07-27] MEDS: ZOLPIDEM TARTRATE 10 MG TABLET PO PRN (21:02)
[2017-07-28 03:55] VITALS: BP 117/73
[2017-07-28 08:12] VITALS: BP 131/71
[2017-07-28] MEDS: LITHIUM CARBONATE 600 MG CAPSULE PO SCH ×2 (08:52→17:01)
[2017-07-28] MEDS: DOCUSATE SODIUM 100 MG CAPSULE PO SCH (08:52)
[2017-07-28] MEDS: OMEPRAZOLE 20 MG CAPSULE PO SCH (08:52)
[2017-07-28] MEDS: LORazepam 2 MG TABLET PO PRN ×2 (08:52→17:01)
[2017-07-28] MEDS: RisperiDONE 3 MG TABLET PO SCH ×2 (08:53→20:09)
[2017-07-28] MEDS: DIVALPROEX SODIUM 500 MG DR TABLET PO SCH ×2 (08:53→20:09)
[2017-07-28] MEDS: MAGNESIUM SULFATE 454 GM BOX PO SCH ×3 (08:53→17:01)
[2017-07-28 16:00] VITALS: BP 117/82
[2017-07-28] MEDS: HALOPERIDOL 5 MG TABLET PO PRN (17:01)
[2017-07-28] MEDS: ZOLPIDEM TARTRATE 10 MG TABLET PO PRN (20:09)
[2017-07-29 06:23] VITALS: BP 121/74
[2017-07-29 08:01] VITALS: BP 133/76
[2017-07-29] MEDS: DOCUSATE SODIUM 100 MG CAPSULE PO SCH (09:05)
[2017-07-29] MEDS: DIVALPROEX SODIUM 500 MG DR TABLET PO SCH ×2 (09:06→20:11)
[2017-07-29] MEDS: RisperiDONE 3 MG TABLET PO SCH ×2 (09:07→20:11)
[2017-07-29] MEDS: OMEPRAZOLE 20 MG CAPSULE PO SCH (09:07)
[2017-07-29] MEDS: LITHIUM CARBONATE 600 MG CAPSULE PO SCH ×2 (09:07→16:21)
[2017-07-29] MEDS: MAGNESIUM SULFATE 454 GM BOX PO SCH ×3 (09:08→16:21)
[2017-07-29 16:10] VITALS: BP 127/82
[2017-07-29] MEDS: HALOPERIDOL 5 MG TABLET PO PRN (16:21)
[2017-07-29] MEDS: LORazepam 2 MG TABLET PO PRN (16:21)
[2017-07-30 06:26] VITALS: BP 109/78
[2017-07-30 08:04] VITALS: BP 125/77
[2017-07-30] MEDS: DOCUSATE SODIUM 100 MG CAPSULE PO SCH (09:13)
[2017-07-30] MEDS: LITHIUM CARBONATE 600 MG CAPSULE PO SCH ×2 (09:14→16:21)
[2017-07-30] MEDS: RisperiDONE 3 MG TABLET PO SCH ×2 (09:14→20:34)
[2017-07-30] MEDS: DIVALPROEX SODIUM 500 MG DR TABLET PO SCH ×2 (09:14→20:34)
[2017-07-30] MEDS: HALOPERIDOL 5 MG TABLET PO PRN ×2 (09:14→16:21)
[2017-07-30] MEDS: LORazepam 2 MG TABLET PO PRN ×2 (09:14→16:21)
[2017-07-30] MEDS: OMEPRAZOLE 20 MG CAPSULE PO SCH (09:14)
[2017-07-30] MEDS: MAGNESIUM SULFATE 454 GM BOX PO SCH ×3 (10:33→16:21)
[2017-07-30 11:30] VITALS: BP 120/71
[2017-07-30 16:00] VITALS: BP 116/72
[2017-07-31 07:18] VITALS: BP 122/73
[2017-07-31] MEDS ORDERED: PALIPERIDONE PALMITATE 234 MG/1.5 ML SYRINGE IM ONE (08:15)
[2017-07-31 08:19] VITALS: BP_SYST 138; BP_SYST 139; BP_DIAS 67; BP_DIAS 82
[2017-07-31] MEDS: DIVALPROEX SODIUM 500 MG DR TABLET PO SCH ×2 (08:41→20:23)
[2017-07-31] MEDS: MAGNESIUM SULFATE 454 GM BOX PO SCH ×3 (08:41→16:27)
[2017-07-31] MEDS: LITHIUM CARBONATE 600 MG CAPSULE PO SCH ×2 (08:41→16:27)
[2017-07-31] MEDS: HALOPERIDOL 5 MG TABLET PO PRN ×2 (08:41→12:41)
[2017-07-31] MEDS: DOCUSATE SODIUM 100 MG CAPSULE PO SCH (08:41)
[2017-07-31] MEDS: OMEPRAZOLE 20 MG CAPSULE PO SCH (08:41)
[2017-07-31] MEDS: LORazepam 2 MG TABLET PO PRN ×2 (08:41→12:41)
[2017-07-31] MEDS: RisperiDONE 3 MG TABLET PO SCH ×2 (08:41→20:23)
[2017-07-31 16:01] VITALS: BP 115/73
[2017-07-31] MEDS: IBUPROFEN 600 MG TABLET PO PRN (16:28)
[2017-08-01 06:22] VITALS: BP 108/73
[2017-08-01 08:13] VITALS: BP 112/70
[2017-08-01] MEDS: OMEPRAZOLE 20 MG CAPSULE PO SCH (08:44)
[2017-08-01] MEDS: RisperiDONE 3 MG TABLET PO SCH ×2 (08:44→20:10)
[2017-08-01] MEDS: MAGNESIUM SULFATE 454 GM BOX PO SCH ×3 (08:44→16:06)
[2017-08-01] MEDS: DIVALPROEX SODIUM 500 MG DR TABLET PO SCH ×2 (08:44→20:10)
[2017-08-01] MEDS: LITHIUM CARBONATE 600 MG CAPSULE PO SCH ×2 (08:44→16:06)
[2017-08-01] MEDS: DOCUSATE SODIUM 100 MG CAPSULE PO SCH (08:44)
[2017-08-01] MEDS: LORazepam 2 MG TABLET PO PRN (16:06)
[2017-08-01 16:30] VITALS: BP 119/76
[2017-08-01 17:13] VITALS: BP 115/70
[2017-08-01] MEDS: IBUPROFEN 600 MG TABLET PO PRN (17:13)
[2017-08-02 06:37] VITALS: BP 112/74
[2017-08-02] MEDS: DIVALPROEX SODIUM 500 MG DR TABLET PO SCH ×2 (08:17→20:07)
[2017-08-02] MEDS: LITHIUM CARBONATE 600 MG CAPSULE PO SCH ×2 (08:17→16:28)
[2017-08-02] MEDS: OMEPRAZOLE 20 MG CAPSULE PO SCH (08:18)
[2017-08-02] MEDS: MAGNESIUM SULFATE 454 GM BOX PO SCH ×3 (08:18→16:28)
[2017-08-02] MEDS: RisperiDONE 3 MG TABLET PO SCH ×2 (08:18→20:07)
[2017-08-02] MEDS: DOCUSATE SODIUM 100 MG CAPSULE PO SCH (08:18)
[2017-08-02] MEDS: LORazepam 2 MG TABLET PO PRN ×2 (08:19→16:28)
[2017-08-02 08:34] VITALS: BP 120/78
[2017-08-02] MEDS: HALOPERIDOL 5 MG TABLET PO PRN (16:28)
[2017-08-02 16:30] VITALS: BP 136/70
[2017-08-02] MEDS: ZOLPIDEM TARTRATE 10 MG TABLET PO PRN (20:07)
[2017-08-03 05:58] VITALS: BP 122/72
[2017-08-03 08:03] VITALS: BP 113/63
[2017-08-03] MEDS: DIVALPROEX SODIUM 500 MG DR TABLET PO SCH ×2 (08:44→20:44)
[2017-08-03] MEDS: LITHIUM CARBONATE 600 MG CAPSULE PO SCH ×2 (08:44→16:56)
[2017-08-03] MEDS: DOCUSATE SODIUM 100 MG CAPSULE PO SCH (08:45)
[2017-08-03] MEDS: LORazepam 2 MG TABLET PO PRN ×2 (08:45→16:56)
[2017-08-03] MEDS: OMEPRAZOLE 20 MG CAPSULE PO SCH (08:45)
[2017-08-03] MEDS: RisperiDONE 3 MG TABLET PO SCH ×2 (08:45→20:43)
[2017-08-03] MEDS: MAGNESIUM SULFATE 454 GM BOX PO SCH ×3 (08:45→16:56)
[2017-08-03 16:28] VITALS: BP 113/73
[2017-08-03] MEDS: HALOPERIDOL 5 MG TABLET PO PRN (16:56)
[2017-08-04 05:11] VITALS: BP 122/76
[2017-08-04 08:09] VITALS: BP 115/74
[2017-08-04] MEDS: LITHIUM CARBONATE 600 MG CAPSULE PO SCH ×2 (08:17→16:29)
[2017-08-04] MEDS: OMEPRAZOLE 20 MG CAPSULE PO SCH (08:17)
[2017-08-04] MEDS: RisperiDONE 3 MG TABLET PO SCH ×2 (08:17→20:32)
[2017-08-04] MEDS: LORazepam 2 MG TABLET PO PRN ×2 (08:17→16:29)
[2017-08-04] MEDS: DOCUSATE SODIUM 100 MG CAPSULE PO SCH (08:18)
[2017-08-04] MEDS: MAGNESIUM SULFATE 454 GM BOX PO SCH ×3 (08:18→16:29)
[2017-08-04] MEDS: DIVALPROEX SODIUM 500 MG DR TABLET PO SCH ×2 (08:18→20:32)
[2017-08-04] MEDS ORDERED: PALIPERIDONE PALMITATE 156 MG/ML SYRINGE IM ONE (09:00)
[2017-08-04] MEDS: HALOPERIDOL 5 MG TABLET PO PRN (16:29)
[2017-08-04 16:38] VITALS: BP 115/66
[2017-08-05 06:20] VITALS: BP 109/69
[2017-08-05 08:04] VITALS: BP 126/70
[2017-08-05] MEDS: DIVALPROEX SODIUM 500 MG DR TABLET PO SCH ×2 (08:28→20:14)
[2017-08-05] MEDS: DOCUSATE SODIUM 100 MG CAPSULE PO SCH (08:28)
[2017-08-05] MEDS: MAGNESIUM SULFATE 454 GM BOX PO SCH ×3 (08:28→16:32)
[2017-08-05] MEDS: OMEPRAZOLE 20 MG CAPSULE PO SCH (08:28)
[2017-08-05] MEDS: LITHIUM CARBONATE 600 MG CAPSULE PO SCH ×2 (08:28→16:31)
[2017-08-05] MEDS: RisperiDONE 3 MG TABLET PO SCH ×2 (08:29→20:14)
[2017-08-05 09:58] VITALS: BP 110/70
[2017-08-05] MEDS: IBUPROFEN 600 MG TABLET PO PRN (10:00)
[2017-08-05 11:00] VITALS: BP 115/71
[2017-08-05 16:00] VITALS: BP 110/73
[2017-08-05] MEDS: LORazepam 2 MG TABLET PO PRN (16:32)
[2017-08-05] MEDS: HALOPERIDOL 5 MG TABLET PO PRN (16:32)
[2017-08-06 06:15] VITALS: BP 115/63
[2017-08-06 08:00] VITALS: BP 109/74
[2017-08-06] MEDS: OMEPRAZOLE 20 MG CAPSULE PO SCH (09:26)
[2017-08-06] MEDS: LORazepam 2 MG TABLET PO PRN ×2 (09:27→16:23)
[2017-08-06] MEDS: MAGNESIUM SULFATE 454 GM BOX PO SCH ×3 (09:27→16:23)
[2017-08-06] MEDS: DOCUSATE SODIUM 100 MG CAPSULE PO SCH (09:27)
[2017-08-06] MEDS: LITHIUM CARBONATE 600 MG CAPSULE PO SCH ×2 (09:27→16:23)
[2017-08-06] MEDS: HALOPERIDOL 5 MG TABLET PO PRN ×2 (09:27→16:23)
[2017-08-06] MEDS: DIVALPROEX SODIUM 500 MG DR TABLET PO SCH ×2 (09:27→20:40)
[2017-08-06] MEDS: RisperiDONE 3 MG TABLET PO SCH ×2 (09:27→20:40)
[2017-08-06 16:08] VITALS: BP 116/78
[2017-08-07 01:05] VITALS: BP 119/81
[2017-08-07 08:00] VITALS: BP 118/80
[2017-08-07] MEDS: LORazepam 2 MG TABLET PO PRN (08:14)
[2017-08-07] MEDS: OMEPRAZOLE 20 MG CAPSULE PO SCH (08:15)
[2017-08-07] MEDS: DOCUSATE SODIUM 100 MG CAPSULE PO SCH (08:15)
[2017-08-07] MEDS: LITHIUM CARBONATE 600 MG CAPSULE PO SCH ×2 (08:15→16:20)
[2017-08-07] MEDS: MAGNESIUM SULFATE 454 GM BOX PO SCH ×3 (08:15→16:20)
[2017-08-07] MEDS: HALOPERIDOL 5 MG TABLET PO PRN (08:15)
[2017-08-07] MEDS: RisperiDONE 3 MG TABLET PO SCH ×2 (08:15→20:10)
[2017-08-07] MEDS: DIVALPROEX SODIUM 500 MG DR TABLET PO SCH ×2 (08:15→20:10)
[2017-08-07 16:23] VITALS: BP 116/68
[2017-08-08 06:15] VITALS: BP 119/73
[2017-08-08 08:02] VITALS: BP 130/80
[2017-08-08] MEDS: RisperiDONE 3 MG TABLET PO SCH ×2 (08:26→20:27)
[2017-08-08] MEDS: OMEPRAZOLE 20 MG CAPSULE PO SCH (08:26)
[2017-08-08] MEDS: LITHIUM CARBONATE 600 MG CAPSULE PO SCH ×2 (08:26→16:39)
[2017-08-08] MEDS: DOCUSATE SODIUM 100 MG CAPSULE PO SCH (08:26)
[2017-08-08] MEDS: DIVALPROEX SODIUM 500 MG DR TABLET PO SCH ×2 (08:26→20:27)
[2017-08-08] MEDS: MAGNESIUM SULFATE 454 GM BOX PO SCH ×3 (08:27→17:11)
[2017-08-08] MEDS: HALOPERIDOL 5 MG TABLET PO PRN ×2 (10:28→16:39)
[2017-08-08 16:00] VITALS: BP 116/79
[2017-08-08] MEDS: LORazepam 2 MG TABLET PO PRN (16:39)
[2017-08-09] MEDS: HALOPERIDOL 5 MG TABLET PO PRN ×3 (00:53→16:42)
[2017-08-09] MEDS: LORazepam 2 MG TABLET PO PRN ×4 (00:53→18:10)
[2017-08-09] MEDS: ZOLPIDEM TARTRATE 10 MG TABLET PO PRN (00:53)
[2017-08-09 00:54] VITALS: BP 129/72
[2017-08-09 08:00] VITALS: BP 130/78
[2017-08-09] MEDS: RisperiDONE 3 MG TABLET PO SCH ×2 (08:30→20:46)
[2017-08-09] MEDS: OMEPRAZOLE 20 MG CAPSULE PO SCH (08:30)
[2017-08-09] MEDS: DOCUSATE SODIUM 100 MG CAPSULE PO SCH (08:30)
[2017-08-09] MEDS: LITHIUM CARBONATE 600 MG CAPSULE PO SCH ×2 (08:30→16:42)
[2017-08-09] MEDS: DIVALPROEX SODIUM 500 MG DR TABLET PO SCH ×2 (08:30→20:46)
[2017-08-09] MEDS: MAGNESIUM SULFATE 454 GM BOX PO SCH ×3 (08:31→16:42)
[2017-08-09 16:00] VITALS: BP 115/82
[2017-08-10 06:47] VITALS: BP 122/85
[2017-08-10 08:04] VITALS: BP 122/71
[2017-08-10] MEDS: RisperiDONE 3 MG TABLET PO SCH ×2 (08:26→20:26)
[2017-08-10] MEDS: HALOPERIDOL 5 MG TABLET PO PRN ×2 (08:26→13:12)
[2017-08-10] MEDS: OMEPRAZOLE 20 MG CAPSULE PO SCH (08:26)
[2017-08-10] MEDS: LITHIUM CARBONATE 600 MG CAPSULE PO SCH ×2 (08:26→16:44)
[2017-08-10] MEDS: DOCUSATE SODIUM 100 MG CAPSULE PO SCH (08:26)
[2017-08-10] MEDS: LORazepam 2 MG TABLET PO PRN ×2 (08:26→13:12)
[2017-08-10] MEDS: MAGNESIUM SULFATE 454 GM BOX PO SCH ×3 (08:27→16:44)
[2017-08-10] MEDS: DIVALPROEX SODIUM 500 MG DR TABLET PO SCH ×2 (08:29→20:26)
[2017-08-10 16:00] VITALS: BP 115/81
[2017-08-11 00:49] VITALS: BP 123/83
[2017-08-11] MEDS: ZOLPIDEM TARTRATE 10 MG TABLET PO PRN ×2 (00:51→21:24)
[2017-08-11] MEDS: LORazepam 2 MG TABLET PO PRN ×2 (00:51→17:28)
[2017-08-11] MEDS: HALOPERIDOL 5 MG TABLET PO PRN ×2 (00:51→17:28)
[2017-08-11 08:00] VITALS: BP 136/74
[2017-08-11] MEDS ORDERED: LORazepam 2 MG/ML VIAL ONE (08:45)
[2017-08-11] MEDS ORDERED: HALOPERIDOL LACTATE 5 MG/ML VIAL ONE (08:45)
[2017-08-11] MEDS ORDERED: DiphenhydrAMINE HCL 50 MG/ML VIAL ONE (08:46)
[2017-08-11] MEDS: DIVALPROEX SODIUM 500 MG DR TABLET PO SCH ×2 (08:49→21:24)
[2017-08-11] MEDS: OMEPRAZOLE 20 MG CAPSULE PO SCH (08:49)
[2017-08-11] MEDS: RisperiDONE 3 MG TABLET PO SCH ×2 (08:49→21:24)
[2017-08-11] MEDS: LITHIUM CARBONATE 600 MG CAPSULE PO SCH ×2 (08:49→17:28)
[2017-08-11] MEDS: DOCUSATE SODIUM 100 MG CAPSULE PO SCH (08:49)
[2017-08-11] MEDS: MAGNESIUM SULFATE 454 GM BOX PO SCH ×3 (08:50→17:28)
[2017-08-11] MEDS ORDERED: LORazepam 2 MG/ML VIAL IM ONE (09:15)
[2017-08-11] MEDS ORDERED: DiphenhydrAMINE HCL 50 MG/ML VIAL IM ONE (09:15)
[2017-08-11] MEDS ORDERED: HALOPERIDOL LACTATE 5 MG/ML VIAL IM ONE (09:15)
[2017-08-11 09:52] VITALS: BP 114/70
[2017-08-11 16:08] VITALS: BP 117/72
[2017-08-12 05:32] VITALS: BP 114/68
[2017-08-12 08:08] VITALS: BP 111/72
[2017-08-12] MEDS: RisperiDONE 3 MG TABLET PO SCH ×2 (09:58→20:29)
[2017-08-12] MEDS: LITHIUM CARBONATE 600 MG CAPSULE PO SCH ×2 (09:58→16:48)
[2017-08-12] MEDS: LORazepam 2 MG TABLET PO PRN ×2 (09:58→16:48)
[2017-08-12] MEDS: DIVALPROEX SODIUM 500 MG DR TABLET PO SCH ×2 (09:58→20:29)
[2017-08-12] MEDS: OMEPRAZOLE 20 MG CAPSULE PO SCH (09:58)
[2017-08-12] MEDS: DOCUSATE SODIUM 100 MG CAPSULE PO SCH (09:58)
[2017-08-12] MEDS: MAGNESIUM SULFATE 454 GM BOX PO SCH ×3 (09:59→16:48)
[2017-08-12] MEDS ORDERED: LORazepam 2 MG/ML VIAL IM ONE (11:15)
[2017-08-12] MEDS ORDERED: HALOPERIDOL LACTATE 5 MG/ML VIAL IM ONE (11:15)
[2017-08-12] MEDS ORDERED: DiphenhydrAMINE HCL 50 MG/ML VIAL IM ONE (11:15)
[2017-08-12 16:00] VITALS: BP 112/68
[2017-08-12] MEDS: HALOPERIDOL 5 MG TABLET PO PRN (16:48)
[2017-08-12] MEDS: ZOLPIDEM TARTRATE 10 MG TABLET PO PRN (20:29)
[2017-08-13] MEDS: LORazepam 2 MG TABLET PO PRN ×3 (08:18→16:45)
[2017-08-13] MEDS: HALOPERIDOL 5 MG TABLET PO PRN ×3 (08:18→16:45)
[2017-08-13] MEDS: DOCUSATE SODIUM 100 MG CAPSULE PO SCH (08:18)
[2017-08-13] MEDS: OMEPRAZOLE 20 MG CAPSULE PO SCH (08:18)
[2017-08-13] MEDS: RisperiDONE 3 MG TABLET PO SCH ×2 (08:18→21:00)
[2017-08-13] MEDS: LITHIUM CARBONATE 600 MG CAPSULE PO SCH ×2 (08:18→16:44)
[2017-08-13] MEDS: MAGNESIUM SULFATE 454 GM BOX PO SCH ×3 (08:20→16:44)
[2017-08-13] MEDS: DIVALPROEX SODIUM 500 MG DR TABLET PO SCH ×2 (08:22→21:00)
[2017-08-13 08:37] VITALS: BP 111/68
[2017-08-13] MEDS: IBUPROFEN 600 MG TABLET PO PRN (10:34)
[2017-08-13 16:00] VITALS: BP 115/77
[2017-08-14 05:10] VITALS: BP 110/65
[2017-08-14] MEDS: HALOPERIDOL 5 MG TABLET PO PRN ×2 (08:08→17:54)
[2017-08-14] MEDS: MAGNESIUM SULFATE 454 GM BOX PO SCH ×3 (08:08→16:14)
[2017-08-14] MEDS: LORazepam 2 MG TABLET PO PRN ×2 (08:08→17:55)
[2017-08-14] MEDS: DIVALPROEX SODIUM 500 MG DR TABLET PO SCH ×2 (08:08→20:28)
[2017-08-14] MEDS: OMEPRAZOLE 20 MG CAPSULE PO SCH (08:08)
[2017-08-14] MEDS: RisperiDONE 3 MG TABLET PO SCH ×2 (08:08→20:29)
[2017-08-14] MEDS: DOCUSATE SODIUM 100 MG CAPSULE PO SCH (08:08)
[2017-08-14] MEDS: LITHIUM CARBONATE 600 MG CAPSULE PO SCH ×2 (08:08→16:14)
[2017-08-14 08:43] VITALS: BP 108/69
[2017-08-14 16:30] VITALS: BP 121/95
[2017-08-15 08:33] VITALS: BP 106/66
[2017-08-15] MEDS: MAGNESIUM SULFATE 454 GM BOX PO SCH ×3 (09:00→16:49)
[2017-08-15] MEDS: LITHIUM CARBONATE 600 MG CAPSULE PO SCH ×2 (10:17→16:49)
[2017-08-15] MEDS: DIVALPROEX SODIUM 500 MG DR TABLET PO SCH ×2 (10:17→21:08)
[2017-08-15] MEDS: DOCUSATE SODIUM 100 MG CAPSULE PO SCH (10:17)
[2017-08-15] MEDS: OMEPRAZOLE 20 MG CAPSULE PO SCH (10:17)
[2017-08-15] MEDS: HALOPERIDOL 5 MG TABLET PO PRN ×2 (10:18→16:49)
[2017-08-15] MEDS: LORazepam 2 MG TABLET PO PRN ×2 (10:19→16:49)
[2017-08-15] MEDS: RisperiDONE 3 MG TABLET PO SCH ×2 (10:23→21:08)
[2017-08-15 16:25] VITALS: BP 102/75
[2017-08-15] MEDS: ZOLPIDEM TARTRATE 10 MG TABLET PO PRN (21:08)
[2017-08-16 05:52] VITALS: BP 113/77
[2017-08-16 08:30] VITALS: BP 105/67
[2017-08-16 08:49] LABS: HEMATOCRIT 43.2 % (41-53); HEMOGLOBIN 14.6 g/dL (13.5-17.5); MEAN CORPUSCULAR HEMOGLOBIN 29.8 pg (26.0-34.0); MEAN CORPUSCULAR HGB CONC 33.8 G/dL (31.0-37.0); MEAN CORPUSCULAR VOLUME 88 fL (80-100); PLATELET COUNT (AUTO) 205 K/uL (150-450)
[2017-08-16 09:11] LABS: ANION GAP 6 mmol/L (8-16); CALCIUM, TOTAL 8.9 mg/dL (8.8-10.5); CARBON DIOXIDE 32 mmol/L (22-29); CHLORIDE 104 mmol/L (98-107); CHOL/HDL RATIO 2.9 (4.2-7.3); CHOLESTEROL 131 mg/dL (131-200); CREATININE 0.64 mg/dL (0.60-1.30); GLOMERULAR FILTR. RATE CALC > 60 mL/min (>60); GLUCOSE,RANDOM 94 mg/dL (70-110); HDL CHOLESTEROL 45 mg/dL (40-60); LDL CHOL (CALC.) 69 mg/dL (0-130); PHOSPHORUS 3.3 mg/dL (2.5-4.9); POTASSIUM 3.6 mmol/L (3.5-5.1); SODIUM SERUM 142 mmol/L (136-145); THYROID STIMULATING HORMONE 1.79 uIU/mL (0.36-3.74); TRIGLYCERIDES 85 mg/dL (15-150); UREA NITROGEN, BLOOD 10 mg/dL (7-18)
[2017-08-16] MEDS: DOCUSATE SODIUM 100 MG CAPSULE PO SCH (09:36)
[2017-08-16] MEDS: DIVALPROEX SODIUM 500 MG DR TABLET PO SCH ×2 (09:36→20:09)
[2017-08-16] MEDS: LITHIUM CARBONATE 600 MG CAPSULE PO SCH ×2 (09:36→16:37)
[2017-08-16] MEDS: MAGNESIUM SULFATE 454 GM BOX PO SCH ×3 (09:36→16:37)
[2017-08-16] MEDS: OMEPRAZOLE 20 MG CAPSULE PO SCH (09:36)
[2017-08-16] MEDS: RisperiDONE 3 MG TABLET PO SCH ×2 (09:36→20:10)
[2017-08-16 10:38] LABS: EOSINOPHILS % (MANUAL) 4 % (1-6); LYMPHOCYTES % (MANUAL) 34 % (22-44); MONOCYTES % (MANUAL) 2 % (2-9); SEGMENTED NEUTROPHILS % 60 % (40-70)
[2017-08-16 16:07] VITALS: BP 118/64
[2017-08-16] MEDS: HALOPERIDOL 5 MG TABLET PO PRN (16:37)
[2017-08-16] MEDS: LORazepam 2 MG TABLET PO PRN (16:37)
[2017-08-16] MEDS: ZOLPIDEM TARTRATE 10 MG TABLET PO PRN (20:10)
[2017-08-17 06:31] VITALS: BP 112/68
[2017-08-17 08:52] VITALS: BP 111/69
[2017-08-17] MEDS: DOCUSATE SODIUM 100 MG CAPSULE PO SCH (09:34)
[2017-08-17] MEDS: DIVALPROEX SODIUM 500 MG DR TABLET PO SCH ×2 (09:34→20:42)
[2017-08-17] MEDS: OMEPRAZOLE 20 MG CAPSULE PO SCH (09:34)
[2017-08-17] MEDS: LITHIUM CARBONATE 600 MG CAPSULE PO SCH ×2 (09:34→17:01)
[2017-08-17] MEDS: RisperiDONE 3 MG TABLET PO SCH ×2 (09:34→20:42)
[2017-08-17] MEDS: MAGNESIUM SULFATE 454 GM BOX PO SCH ×3 (09:35→17:01)
[2017-08-17 16:07] VITALS: BP 124/84
[2017-08-17] MEDS: LORazepam 2 MG TABLET PO PRN (17:01)
[2017-08-17] MEDS: HALOPERIDOL 5 MG TABLET PO PRN (17:01)
[2017-08-17] MEDS: ZOLPIDEM TARTRATE 10 MG TABLET PO PRN (20:42)
[2017-08-18 06:29] VITALS: BP 117/80
[2017-08-18] MEDS: LITHIUM CARBONATE 600 MG CAPSULE PO SCH ×2 (07:53→17:07)
[2017-08-18] MEDS: DOCUSATE SODIUM 100 MG CAPSULE PO SCH (07:53)
[2017-08-18] MEDS: RisperiDONE 3 MG TABLET PO SCH (07:54)
[2017-08-18] MEDS: OMEPRAZOLE 20 MG CAPSULE PO SCH (07:58)
[2017-08-18] MEDS: DIVALPROEX SODIUM 500 MG DR TABLET PO SCH (07:59)
[2017-08-18 08:14] VITALS: BP 122/76
[2017-08-18] MEDS ORDERED: CHOLECALCIFEROL (VIT D3) 1,000 UNITS TABLET PO SCH (09:00)
[2017-08-18] MEDS: MAGNESIUM SULFATE 454 GM BOX PO SCH ×3 (09:53→17:08)
[2017-08-18] MEDS ORDERED: VITAD1000 PO (15:45)
[2017-08-18] MEDS ORDERED: LITH300C3 PO (15:45)
[2017-08-18] MEDS ORDERED: RISP3 PO (15:45)
[2017-08-18] MEDS ORDERED: DIVA500T35 PO (15:45)
[2017-08-18 16:00] VITALS: BP 129/81
== END 2017-08-18 19:00 | disposition home or self-care (01) | DRG 750 ==
LOC: EMS 07:33 → B3A 15:27
PROVIDERS: ADMIT Psychiatry & Neurology Child & Adolescent Psychiatry; ATTEND Psychiatry & Neurology Child & Adolescent Psychiatry
DX: F20.0 Paranoid schizophrenia (principal); F14.20 Cocaine dependence, uncomplicated; F12.20 Cannabis dependence, uncomplicated; S00.12XA Contusion of left eyelid and periocular area, initial encounter; K08.89 Other specified disorders of teeth and supporting structures; M79.675 Pain in left toe(s); W19.XXXA Unspecified fall, initial encounter; F17.200 Nicotine dependence, unspecified, uncomplicated; Z56.0 Unemployment, unspecified; K59.00 Constipation, unspecified; G47.00 Insomnia, unspecified; Z71.6 Tobacco abuse counseling; Z71.51 Drug abuse counseling and surveillance of drug abuser; Y93.89 Activity, other specified; Y92.89 Other specified places as the place of occurrence of the external cause; Y99.8 Other external cause status; Z87.820 Personal history of traumatic brain injury; R45.87 Impulsiveness; Z79.899 Other long term (current) drug therapy
CPT/HCPCS: 82306; 83735; 84100; 84443; 84550; 85007; 87081; 90471; 96372; 99291; J1200; J1630; J2060; J3230; J3535